=== PATIENT | female | born 1995 | race Caucasian/White ===

== ENCOUNTER 2016-05-16 19:57 | Inpatient (IN) | payer BC ==
[2016-05-16 21:29] LABS: BACTERIA, URINE OCC /hpf; BLOOD, URINE NEG (NEG); COMMENT (UR) CULT NOT INDICATED; CULTURE IF INDICATED CULT NOT INDICATED; GLUCOSE,URINE NEG (NEG); KETONE, URINE NEG (NEG); NITRITE,URINE NEG (NEG); SQUAMOUS EPITHELIAL CELL URINE <1 /hpf (0-5); URINE COLOR LIGHT-YELLOW (YELLW/STRAW)
[2016-05-16] MEDS ORDERED: SODIUM CHLORIDE 5 ML FLUSH PRN IVF (21:30)
[2016-05-16] MEDS ORDERED: DINOPROSTONE 10 MG INSERT-LEAVE FOR 12 HOURS VAGINAL ONE (21:30)
[2016-05-16 21:44] LABS: BASOPHIL % 0.3 % (0.0-2.0); EOSINOPHIL # 0.1 TH/MM3 (0-0.4); EOSINOPHIL % 0.5 % (0.0-4.0); HEMATOCRIT 34.2 % (35.0-46.0); HEMO FLAGS DIFF FINAL; LYMPH % 22.6 % (9.0-44.0); LYMPHOCYTE # 2.6 TH/MM3 (1.0-4.8); MEAN CELL VOLUME 85.5 FL (80.0-100.0); MEAN CORPUSCULAR HEMOGLOBIN 29.2 PG (27.0-34.0); MEAN CORPUSCULAR HGB CONC 34.1 % (32.0-36.0); MONO % 7.1 % (0.0-8.0); NEUT % 69.5 % (16.0-70.0); PLATELET COUNT 273 TH/MM3 (150-450); RED BLOOD COUNT 3.99 MIL/MM3 (4.00-5.30); RED CELL DISTRIBUTION WIDTH 12.9 % (11.6-17.2); WHITE BLOOD COUNT 11.5 TH/MM3 (4.0-11.0)
[2016-05-16 22:15] VITALS: RESP 18
[2016-05-16 23:22] VITALS: RESP 18
[2016-05-16 23:30] VITALS: TEMP 98.5
[2016-05-17] VITALS (22 sets, daily range): BP systolic 100–150; BP diastolic 58–91; PULSE 63–81; RESP 16–18; TEMP 98–98.7
[2016-05-17] MEDS ORDERED: CITRIC ACID-SODIUM CITRATE LIQ 30 ML UDC PO SCH (04:45)
[2016-05-17] MEDS ORDERED: ONDANSETRON HCL 4 MG/2 ML VIAL IV PRN (04:45)
[2016-05-17] MEDS ORDERED: MINERAL OIL 10 ML VIAL TOP PRN (04:45)
[2016-05-17] MEDS ORDERED: NS 1000 ML IV PRN (04:45)
[2016-05-17] MEDS ORDERED: LACTATED RINGER'S 1000 ML BOLUS IV PRN (04:45)
[2016-05-17] MEDS ORDERED: NS 500 ML BOLUS IV PRN (04:45)
[2016-05-17] MEDS ORDERED: LIDOCAINE HCL 1% 50 ML VIAL INFIL PRN (04:45)
[2016-05-17] MEDS ORDERED: LIDOCAINE HCL 1% 50 ML VIAL I-DERMAL PRN (04:45)
[2016-05-17] MEDS ORDERED: ZOLPIDEM TARTRATE 10 MG TAB PO PRN (04:45)
[2016-05-17] MEDS ORDERED: OXYTOCIN 30 UNITS 500ML PREMIX IV ONE (04:45)
[2016-05-17] MEDS: LACTATED RINGER'S 1000 ML IV SCH ×2 (07:57→15:02)
--- NOTE | 2016-05-17 08:40 | HHI.HP ---
HPI Chief Complaint IOL at term Travel History International Travel<30 Days: No Contact w/Intl Traveler<30Days: No Known Affected Area: No History of Present Illness HPI 20 yo g1 with IUP at 40 wk by first trimester u/s c/w lmp here for iol at term. +FM, neg lof, neg VB. She is having contractions every 5 minutes, getting stronger. : 1 History Past Medical History Medical History: Denies Significant Hx Past Surgical History Surgical History: No Previous Surgery Family History Family History: Negative Social History Alcohol Use: No Tobacco Use: No Substance Abuse: No Allergies-Medications (Allergen,Severity, Reaction): Coded Allergies: Sulfa (Unverified Allergy, Unknown, 05/16/16) Review of Systems General / Constitutional: No: Fever, Weight Gain, Chills, Other Eyes: No: Diploplia, Blurred Vision, Visual changes, Pain, Photophobia HENT: No: Headaches, Vertigo, Lightheadedness Cardiovascular: No: Irregular Rhythm, Chest Pain or Discomfort, Palpitations, Tachycardia, Syncope, Varicosities, Edema, Cyanosis Respiratory: No: Cough, Short of Breath, Other Gastrointestinal: No: Nausea, Vomiting, Diarrhea Genitourinary: No: Decreased Urinary Output, Oliguria Musculoskeletal: No: Limited ROM, Weakness, Cramping, Edema, Pain Skin: No Rash, No Itching, No Dryness, No Lumps, No Change in Pigmentation, No Change in Nails, No Alopecia, No Lesions Neurologic: No: Weakness, Dizziness, Syncope, Focal Abnormalities, Coordination Problem, Headache, Slurred Speech, Seizures Psychiatric: No: Depression, Suicidal Ideations, Homicidal Ideation Endocrine: No: Heat Intolerance, Cold Intolerance, Polydipsia, Polyuria, Other Physical Exam Narrative GENERAL: Well-nourished, well-developed patient. SKIN: Warm and dry. HEAD: Normocephalic and atraumatic. EYES: No scleral icterus. No injection or drainage. ENT: No nasal drainage noted. Mucous membranes pink. Airway patent. NECK: Supple, trachea midline. No JVD. CARDIOVASCULAR: Regular rate and rhythm without murmurs, gallops, or rubs. RESPIRATORY: Breath sounds equal bilaterally. No accessory muscle use. ABDOMEN/GI: Abdomen soft, non-tender, bowel sounds present, no rebound, no guarding Gravid to 40 weeks size GENITOURINARY: External Genitalia: intact and normal in appearance BUS glands: [-] /-2 Presentation: ceph Membranes: [intact Uterine Contractions:5 FHT's: Category:I Baseline: 130 Reactive: y Variability: mod Decels: [-] EXTREMITIES: No cyanosis or edema. BACK: Nontender without obvious deformity. No CVA tenderness. NEUROLOGICAL: Awake and alert. Motor and sensory grossly within normal limits. Five out of 5 muscle strength in all muscle groups. Normal speech. Data Data Vital Signs Reviewed: Yes Orders Diet Regular Basic (05/16/16 Dinner) Admit To Inpatient (05/16/16 ) Code Status (05/16/16 20:39) Vital Signs (Adult) .Per protocol (05/16/16 20:39) Activity Oob Ad Brooke (05/16/16 20:39) ^ Heart (05/16/16 20:39) ^ Amnioinfusion (05/16/16 20:39) Urinary Catheter Management .ONCE (05/16/16 20:39) Diet Liquid (05/17/16 Breakfast) Complete Blood Count With Diff (05/16/16 20:39) Hold Clot (05/16/16 20:39) Abo/Rh Blood Type (05/16/16 20:39) Urinalysis - C+S If Indicated (05/16/16 20:39) Resp Oxygen Non Rebreathe Mask (05/16/16 ) ^ Epidural / Intrathecal Infus (05/16/16 20:39) Specimen To Be Collected PRN (05/16/16 20:39) Dinoprostone Vag Insert (Cervidil Vag In (05/16/16 21:30) Sodium Chloride 0.9% Flush (Ns Flush) (05/17/16 09:00) Sodium Chloride 0.9% Flush (Ns Flush) (05/16/16 21:30) ^ Labor Induction (05/16/16:) ^ Vaginal Insert (05/16/16:17) ^ Vaginal Lavage (05/16/16:) ^ Heart (05/16/16:17) Diet Regular Basic (05/16/16 Dinner) ^ Diet Progression Instruction (05/16/16:17) Zolpidem (Ambien) (05/17/16 04:45) Lactated Ringer's 1000 Ml Inj (Lr 1000 M (05/17/16 04:45) Lactated Ringer's 1000 Ml Inj (Lr 1000 M (05/17/16 04:45) Sodium Chlorid 0.9% 500 Ml Inj (Ns 500 M (05/17/16 04:45) Sodium Chlor 0.9% 1000 Ml Inj (Ns 1000 M (05/17/16 04:45) Lidocaine 1% Inj (50 Ml) (Xylocaine 1% I (05/17/16 04:45) Citric Acid-Sodium Citrate Liq (Bicitra (05/17/16 04:45) Ondansetron Inj (Zofran Inj) (05/17/16 04:45) Fentanyl Inj (Fentanyl Inj) (05/17/16 04:45) Fentanyl Inj (Fentanyl Inj) (05/17/16 04:45) Oxytocin 30 Units-500ml Premix (Pitocin (05/17/16 04:45) Lidocaine 1% Inj (50 Ml) (Xylocaine 1% I (05/17/16 04:45) Light Mineral Oil (Muri-Lube Oil) (05/17/16 04:45) Labs Laboratory Tests Test 05/16/16 05/16/16 20:15 20:45 Urine Color LIGHT-YELLOW Urine Turbidity CLEAR Urine pH 7.0 Urine Specific Colome 1.007 Urine Protein NEG Urine Glucose (UA) NEG Urine Ketones NEG Urine Occult Blood NEG Urine Nitrite NEG Urine Bilirubin NEG Urine Urobilinogen LESS THAN 2.0 Urine Leukocyte Esterase NEG Urine RBC LESS THAN 1 Urine WBC 4 Urine Squamous Epithelial <1 Cells Urine Bacteria OCC Microscopic Urinalysis Comment CULT NOT INDICATED White Blood Count 11.5 Red Blood Count 3.99 Hemoglobin 11.7 Hematocrit 34.2 Mean Corpuscular Volume 85.5 Mean Corpuscular Hemoglobin 29.2 Mean Corpuscular Hemoglobin 34.1 Concent Red Cell Distribution Width 12.9 Platelet Count 273 Mean Platelet Volume 8.1 Neutrophils (%) (Auto) 69.5 Lymphocytes (%) (Auto) 22.6 Monocytes (%) (Auto) 7.1 Eosinophils (%) (Auto) 0.5 Basophils (%) (Auto) 0.3 Neutrophils # (Auto) 8.0 Lymphocytes # (Auto) 2.6 Monocytes # (Auto) 0.8 Eosinophils # (Auto) 0.1 Basophils # (Auto) 0.0 CBC Comment DIFF FINAL Differential Comment Blood Type B POSITIVE Blood Bank Comment Band and Hold Assessment/Plan Problem List: (1) Labor and delivery indication for care or intervention Assessment and Plan 20 yo G1 with IUP at 40 wk here for iol 1) IOL- s/p cervidil overnight. Will start pitocin 2) Fetus- Cat I tracing , EFW 7.5-8lb Amanda Welsh MD May 17, 2016 08:40
[2016-05-17] MEDS ORDERED: OXYTOCIN 30 UNITS-500ML PREMIX 500 ML IV SCH (09:00)
[2016-05-17] MEDS ORDERED: SODIUM CHLORIDE 5 ML FLUSH BID IVF SCH (09:00)
[2016-05-17] MEDS ORDERED: fentaNYL 2MCG-BUPIV 0.125% INJ 100 ML ONE (12:29)
[2016-05-17] MEDS ORDERED: ePHEDrine/NS 25 MG/5 ML SYR ONE (12:54)
[2016-05-17] MEDS ORDERED: DIPHTH/TETANUS/ACEL PERTUSSIS (BOOSTER) 0.5 ML VIAL/PFS IM ONE (16:00)
[2016-05-17] MEDS ORDERED: MEASLES, MUMPS, RUBELLA VACCINE 0.5 ML VIAL SQ ONE (16:00)
--- NOTE | 2016-05-17 16:42 | PD.OB.DELI ---
Delivery Date: May 17, 2016 Anesthesia: Epidural Episiotomy: None Vaginal Delivery: Normal Presentation: Occiput anterior Nuchal Cord: None Delayed cord clamping (45 sec): Yes Infant: Female One Minute : 9 Five Minute : 9 Weight: 6 lb 10 oz Care: Spontaneous crying Placenta: Spontaneous delivery Laceration: No lacerations Additional Information ebl 200ml Amanda Welsh MD May 17, 2016 16:42
--- NOTE | 2016-05-17 16:44 | HHI.DCPOC ---
Discharge Care Plan Diagnosis: (1) (spontaneous vaginal delivery) Your Health Problems Are: Vaginal delivery Report Symptoms to Your Doctor -Temperate above 100.5 degrees -Redness, of incision or excessive or foul smelling drainage -Unusual pain or calf pain -Increased vaginal bleeding -Painful or difficulty urinating -Feelings of extreme sadness or anxiety after 2 weeks Goals to Promote Your Health * To prevent worsening of your condition and complications * To maintain your health at the optimal level Directions to Meet Your Goals Take your medications as prescribed Follow your dietary instruction Follow activity as directed Ensure plenty of rest for recovery Drink fluids for hydration Keep your appointments as scheduled Take your immunizations and boosters as scheduled If your symptoms worsen call your PCP, if no PCP go to Urgent Care Center or Emergency Room Smoking is Dangerous to Your Health. Avoid second hand smoke Call the 24-hour crisis hotline for domestic abuse at Amanda Welsh MD May 17, 2016 16:44
[2016-05-17] MEDS ORDERED: SODIUM CHLORIDE 0.9% FLUSH 5 ML FLUSH IV PRN (16:45)
[2016-05-17] MEDS ORDERED: BENZOCAINE 20% TOPICAL SPRAY 60 ML CAN TOPICAL PRN (16:45)
[2016-05-17] MEDS ORDERED: ACETAMINOPHEN 325 MG TAB PO PRN (16:45)
[2016-05-17] MEDS ORDERED: ALUMINUM/MAGNESIUM/SIMETH 30 ML CUP PO PRN (16:45)
[2016-05-17] MEDS ORDERED: DOCUSATE SODIUM 50 MG/SENNA 8.6 MG TAB PO PRN (16:45)
[2016-05-17] MEDS ORDERED: WITCH HAZEL 50%/GLYCERIN 12.5% 40 PAD JAR TOPICAL PRN (16:45)
[2016-05-17] MEDS ORDERED: ONDANSETRON ODT 4 MG TAB PO PRN (16:45)
[2016-05-17] MEDS ORDERED: ZOLPIDEM TARTRATE 5 MG TAB PO PRN (16:45)
[2016-05-17] MEDS ORDERED: SODIUM CHLORIDE 0.9% FLUSH 5 ML FLUSH IV SCH (21:00)
[2016-05-18 07:45] VITALS: BP 123/80; PULSE 76; RESP 16; TEMP 98.3
[2016-05-18] MEDS: IBUPROFEN 600 MG TAB PO PRN ×2 (09:45→16:08)
--- NOTE | 2016-05-18 13:04 | HHI.OB ---
Subjective Post Day: 1 Remarks Doing well PPD 1 no issues Objective Vitals/I&O Vital Signs Date Time Temp Pulse Resp B/P Pulse Ox O2 Delivery O2 Flow Rate FiO2 05/18/16 07:45 98.3 76 16 05/18/16 07:45 123/80 05/17/16 19:15 98.2 81 18 127/90 Objective Remarks GENERAL: Well-nourished, well-developed patient. CARDIOVASCULAR: Regular rate and rhythm without murmurs, gallops, or rubs. RESPIRATORY: Breath sounds equal bilaterally. No accessory muscle use. ABDOMEN/GI: Abdomen soft, non-tender. Fundus: Firm, non-tender at umbilicus. GENITOURINARY: Light to moderate bleeding. EXTREMITIES: No cyanosis or edema, non-tender, without signs of DVT. Medications and IVs Current Medications Medications (Trade) Dose Ordered Sig/Elmer Route Start Time Stop Time Status Last Admin (NS Flush) 2 ml BID IV 05/17/16 21:00 (NS Flush) 2 ml UNSCH PRN IV 05/17/16 16:45 (Tylenol) 650 mg Q4H PRN PO 05/17/16 16:45 (Motrin) 600 mg Q6H PRN PO 05/17/16 16:45 05/18/16 09:45 (Americaine 20% Top Spr) 1 spray Q4H PRN TOPICAL 05/17/16 16:45 (Tucks Pads) 1 applic QID PRN TOPICAL 05/17/16 16:45 (Ayah-Colace) 2 tab Q12H PRN PO 05/17/16 16:45 (Ambien) 5 mg HS PRN PO 05/17/16 16:45 (Mag-Al Plus Susp Liq) 15 ml Q8H PRN PO 05/17/16 16:45 (Zofran Odt) 4 mg Q6H PRN PO 05/17/16 16:45 Assessment/Plan Problem List: (1) Labor and delivery indication for care or intervention Assessment and Plan PPD 1 doing well discharge PPD 2 Vivian Knutson MD May 18, 2016 13:04
[2016-05-18 19:51] VITALS: BP 123/88; PULSE 67; RESP 16; TEMP 97.6
--- NOTE | 2016-05-19 08:02 | HHI.OB ---
Subjective Post Day: 2 Remarks no complaints, Objective Vitals/I&O Vital Signs Date Time Temp Pulse Resp B/P Pulse Ox O2 Delivery O2 Flow Rate FiO2 05/18/16 19:51 97.6 67 16 123/88 Objective Remarks GENERAL: Well-nourished, well-developed patient. CARDIOVASCULAR: Regular rate and rhythm without murmurs, gallops, or rubs. RESPIRATORY: Breath sounds equal bilaterally. No accessory muscle use. ABDOMEN/GI: Abdomen soft, non-tender. Fundus: Firm, non-tender at umbilicus. GENITOURINARY: Light to moderate bleeding. EXTREMITIES: No cyanosis or edema, non-tender, without signs of DVT. Medications and IVs Current Medications Medications (Trade) Dose Ordered Sig/Elmer Route Start Time Stop Time Status Last Admin (NS Flush) 2 ml BID IV 05/17/16 21:00 (NS Flush) 2 ml UNSCH PRN IV 05/17/16 16:45 (Tylenol) 650 mg Q4H PRN PO 05/17/16 16:45 (Motrin) 600 mg Q6H PRN PO 05/17/16 16:45 05/18/16 16:08 (Americaine 20% Top Spr) 1 spray Q4H PRN TOPICAL 05/17/16 16:45 (Tucks Pads) 1 applic QID PRN TOPICAL 05/17/16 16:45 (Ayah-Colace) 2 tab Q12H PRN PO 05/17/16 16:45 (Ambien) 5 mg HS PRN PO 05/17/16 16:45 (Mag-Al Plus Susp Liq) 15 ml Q8H PRN PO 05/17/16 16:45 (Zofran Odt) 4 mg Q6H PRN PO 05/17/16 16:45 Assessment/Plan Problem List: (1) Labor and delivery indication for care or intervention (2) (spontaneous vaginal delivery) Assessment and Plan PPD 2 doing well discharge PPD 2 Discharge Planning routine Attending Attestation pt seen by Penny Pelletier MD May 19, 2016 08:02
[2016-05-19] MEDS ORDERED: IBUP-232 PO (08:04)
[2016-05-19 08:05] VITALS: BP 105/75; PULSE 74; RESP 18; TEMP 97.7
[2016-05-19] MEDS: IBUPROFEN 600 MG TAB PO PRN (08:18)
== END 2016-05-19 13:32 | disposition home or self-care (01) | DRG 775 ==
LOC: H2EA 19:57 → H1EA 05-17 18:19
PROVIDERS: ADMIT Obstetrics & Gynecology; ATTEND Obstetrics & Gynecology
PROC: 3E033VJ Introduction of Other Hormone into Peripheral Vein, Percutaneous Approach (ICD-10-PCS; 2016-05-16)
PROC: 10E0XZZ Delivery of Products of Conception, External Approach (ICD-10-PCS; principal; 2016-05-17)
PROC: 00HU33Z Insertion of Infusion Device into Spinal Canal, Percutaneous Approach (ICD-10-PCS; 2016-05-17)
PROC: 3E0R3CZ (ICD-10-PCS; 2016-05-17)
DX: O48.0 Post-term pregnancy (principal); Z37.0 Single live birth; Z3A.40 40 weeks gestation of pregnancy
CPT/HCPCS: 59025; 81001; 85025; 86900; 86901; 90715; J2405; J2590; J3010; J7120